=== PATIENT | female | born 1995 | race Caucasian/White ===

== ENCOUNTER 2019-12-03 11:59 | Emergency (ER) | payer BC, SELFPAY ==
--- NOTE | ~2019-12-03 | XR_ITS ---
EXAMINATION: XR elbow LT min 3V DATE: 12/03/2019 13:26 INDICATION: Left elbow pain. Injury. TECHNIQUE: 4 views of left elbow were obtained. COMPARISON: None. FINDINGS: Bone alignment is normal. No fracture. Joint spaces are well maintained. There is no elbow joint effusion. IMPRESSION: 1. No fracture. Reviewed, dictated and finalized at location A. IMPRESSION: 1. No fracture.
--- NOTE | ~2019-12-03 | XR_ITS ---
XR elbow RT min 3V DATE: 12/03/2019 13:26 INDICATION: Fall. Right elbow injury, pain TECHNIQUE: 4 views COMPARISON: None FINDINGS: No recent fracture or dislocation or joint effusion. No periosteal reaction or bone destruc tion. IMPRESSION: No recent fracture or dislocation or joint effusion Reviewed, dictated and finalized at location A.
--- NOTE | ~2019-12-03 | CT_ITS ---
EXAMINATION: CT brain wo con DATE: 12/03/2019 13:13 INDICATION: Head injury. TECHNIQUE: Computed tomography (CT) of the head was performed without intravenous contrast. The mA wa s adjusted according to patient size. Iterative reconstruction technique was employed. The dose-lengt h product was 605.33 mGy-cm. COMPARISON: None FINDINGS: There is no intracranial hemorrhage, acute infarction, or abnormal intracranial mass lesion . The ventricles are normal in size. The paranasal sinuses are clear. The mastoid air cells are norm al. The orbits are normal. IMPRESSION: 1. Normal brain. Reviewed, dictated and finalized at location A. IMPRESSION: 1. Normal brain.
--- NOTE | ~2019-12-03 | XR_ITS ---
EXAMINATION: XR forearm LT 2V DATE: 12/03/2019 13:26 INDICATION: Left forearm pain. Injury. TECHNIQUE: 2 views of left forearm were obtained. COMPARISON: None. FINDINGS: Bone alignment is normal. No fracture. Joint spaces are well maintained. There is no elbow joint effusion. IMPRESSION: 1. No fracture. Reviewed, dictated and finalized at location A. IMPRESSION: 1. No fracture.
[2019-12-03 12:16] VITALS: BP 131/79; PULSE 86; RESP 14; TEMP 37.1; O2SAT 100
[2019-12-03] MEDS: TETANUS,DIPHTHERIA,AC PERTUSSIS ADULT (0.5 ML) BOOSTRIX IM (12:41)
[2019-12-03] MEDS: IBUPROFEN 600 MG TABLET PO (12:55)
[2019-12-03 14:32] VITALS: BP 125/86; PULSE 72; RESP 15; O2SAT 10
--- NOTE | 2019-12-03 14:49 | ED.HEATRA ---
HPI - Head Injury General Chief complaint: Head Injury Stated complaint: head injury Time Seen by Provider: 12/03/19 12:22 Source: patient Mode of arrival: ambulatory Limitations: no limitations History of Present Illness HPI Narrative: This is a 23-year-old female that presents the emergency department for a fall today with head injury. Reports she was skateboarding down a hill and lost her balance and fell. Reports hitting her head. Reports she did not have a helmet on. Denies loss of consciousness. Reports a laceration to the forehead. Reports that she has been a little lightheaded and has a headache. Also reports injuries to the elbows. She is unsure of her last tetanus vaccine. Denies vision changes, vomiting, numbness or weakness. Related Data Home Medications Medication Instructions Recorded Confirmed No Home Medications 12/03/19 12/03/19 Allergies Allergy/AdvReac Type Severity Reaction Status Date / Time No Known Drug Allergies Allergy Unknown Other Verified 12/03/19 12:39 Review of Systems Review of Systems: Narrative: CONSTITUTIONAL: Denies fever EYES: Denies visual changes GASTROINTESTINAL: Denies vomiting MUSCULOSKELETAL: Reports joint pain, and myalgia. NEUROLOGIC: Reports headache. Denies numbness, or weakness. All systems reviewed & are unremarkable except as noted in HPI and below PMFSH Past Medical History Medical History (Updated 12/03/19 @ 14:55 by Lara Amador PA-C) No active medical problems Social History Social History (Updated 12/03/19 @ 14:51 by Lara Amador PA-C) Smoking status: Never smoker Gender identity (if verbalized by the patient): Female Exam Narrative: Exam Narrative: GENERAL: Well-appearing, well-nourished, and in no acute distress. HEAD: Normocephalic. 1.5cm linear laceration into subcutaneous tissue over left eyebrow EYES: PERRLA and EOMI. ENT: Nares clear, no rhinorrhea or epistaxis. Mucous membranes moist. Oropharynx without tonsillar hypertrophy exudate or other lesions. Bilateral TMs pearly roque non-bulging NECK: Supple. No adenopathy or masses. No midline spinal tenderness CHEST: Clear to auscultation. No respiratory distress. No wheezes rales or rhonchi HEART: Regular rate and rhythm. No murmur heard. Normal peripheral pulses. BACK: No midline spinal tenderness EXTREMITIES: Normal range of motion. No edema. Strength equal in bilateral upper and lower extremities SKIN: Warm, dry, no rash. NEURO: No focal deficits. Alert and oriented x3. Cranial nerves II through XII grossly intact PSYCH: Normal mood and affect Course Vital Signs Vital signs: Vital Signs Temperature 98.7 F 12/03/19 12:16 Pulse Rate 86 12/03/19 12:16 Respiratory Rate 14 12/03/19 12:16 Blood Pressure 131/79 12/03/19 12:16 Pulse Oximetry 100 12/03/19 12:16 Temperature 98.7 F 12/03/19 12:16 Pulse Rate 72 12/03/19 14:32 Respiratory Rate 15 12/03/19 14:32 Blood Pressure 125/86 12/03/19 14:32 Pulse Oximetry 10 L 12/03/19 14:32 Procedures Laceration Laceration 1: Date: 12/03/19 Time: 14:54 Site: face Side (If applicable): left Size (cm): 1.5 Description: linear Depth: simple, single layer Local Anesthetic: lidocaine 1% and with epi Amount of anesthesia used (mL): 1 Pre-repair: irrigated ====== Skin Level ====== Skin layer closed with: nylon Size (cm): 5-0 Number of sutures: 2 Technique: simple, interrupted ====== Subcutaneous Layer ====== ====== Muscle Layer ====== ====== Tendon Layer ====== Dressing: Covered with antibiotic ointment and gauze MDM - Head Injury MDM Narrative Medical decision making narrative: Patient presents the emergency department for fall off skateboard with head injury. Patient's vitals are stable. She is neurologically intact. CT scan of the brain is normal. Patient also reports bilate
[2019-12-03 15:18] VITALS: BP 123/84; PULSE 69; RESP 14; O2SAT 100
== END 2019-12-03 15:19 | disposition home or self-care (01) ==
PROVIDERS: Emergency Provider Emergency Medicine
DX: S01.112A Laceration without foreign body of left eyelid and periocular area, initial encounter (principal); M25.522 Pain in left elbow; M25.521 Pain in right elbow; Z23 Encounter for immunization; V00.131A Fall from skateboard, initial encounter; Y93.51 Activity, roller skating (inline) and skateboarding
CPT/HCPCS: 12011; 70450; 73080; 73090; 90471; 90715; 99284; A9270

== ENCOUNTER 2020-02-04 08:10 | Outpatient (CLI) | payer BC, SELFPAY ==
--- NOTE | ~2020-02-04 | US_ITS ---
US right upper quadrant DATE: 02/04/2020 08:42 INDICATION: Right upper quadrant abdominal pain, swelling TECHNIQUE: Real-time imaging of the liver, pancreas, gallbladder areas COMPARISON: None FINDINGS: No hepatic or pancreatic space-occupying mass lesion is evident. Normal hepatopedal portal venous flow direction. No gallstones or gallbladder wall thickening or abnormal pericholecystic fluid collection. Negative s onographic Amato's sign. The common bile duct measures 3.9 mm, normal. IMPRESSION: No significant abnormality Reviewed, dictated and finalized at Location A. Reviewed, dictated and finalized at location B. IMPRESSION: No significant abnormality
== END 2020-02-04 08:11 | disposition home or self-care (01) ==
PROVIDERS: PCP Family Medicine; Visit Provider Family Medicine
DX: R19.01 Right upper quadrant abdominal swelling, mass and lump (principal)
CPT/HCPCS: 76705

== ENCOUNTER 2021-01-15 10:39 | Emergency (ER) | payer BC, SELFPAY ==
[2021-01-15 11:00] VITALS: BP 141/88; PULSE 76; PULSE 80; RESP 18; TEMP 36.3; O2SAT 100
--- NOTE | 2021-01-15 11:41 | ED.GENADULT ---
HPI - General Adult General Chief complaint: Arrhythmia/Palpitations Stated complaint: chest pressure, palpatations Time Seen by Provider: 01/15/21 11:02 Source: patient and RN notes reviewed Mode of arrival: ambulatory Limitations: no limitations History of Present Illness HPI narrative: Pt had no acute sxs in the ED. Last pm she had heart palpitations, sleeplessness and was anxious. pt took Atarax this early AM. MD complaint: no acute sxs in the ED. had anxiety attack last PM. Onset (ago): day(s) (1) Pain Consistency: other (pain-free) Relieving factors: medication Exacerbating factors: none Related Data Home Medications Medication Instructions Recorded Confirmed hydroxyzine pamoate 25 mg PO PRN 01/15/21 01/15/21 venlafaxine 37.5 mg PO DAILY 01/15/21 01/15/21 venlafaxine 75 mg PO DAILY 01/15/21 01/15/21 Allergies Allergy/AdvReac Type Severity Reaction Status Date / Time No Known Drug Allergies Allergy Unknown Other Verified 12/03/19 12:39 Review of Systems Review of Systems: All systems reviewed & are unremarkable except as noted in HPI and below Constitutional: Constitutional: Reports no additional constitutional complaints Eyes: Eyes: Reports no additional eye complaints ENT: Reports system reviewed and no additional complaints, except as documented Cardiovascular: Cardiovascular: Reports no additional cardiovascular complaints Respiratory: Respiratory: Reports no additional respiratory complaints Gastrointestinal: Gastrointestinal: Reports no additional gastrointestinal complaints Genitourinary: Genitourinary: Reports no additional female genitourinary complaints Musculoskeletal: Musculoskeletal: Reports no additional musculoskeletal complaints Integumentary/Breasts: Skin/Breast: Reports system reviewed and no additional complaints, except as docu Neurologic: Reports system reviewed and no additional complaints, except as documented Psychiatric: Psychiatric: Reports anxiety and Reports depression Endocrine: Endocrine: Reports no additional endocrine complaints Hematologic/Lymphatic: Hematologic/Lymphatic: Reports no additional hematologic/lymphatic complaints Allergic/Immunologic: Allergic/Immunologic: Reports no additional allergic/immunologic complaints [facility] Past Medical History Medical History (Updated 01/15/21 @ 11:47 by Nii Frank MD) Anxiety No active medical problems Social History Social History Smoking status: Never smoker Gender identity (if verbalized by the patient): Female Exam Const: General: no acute distress and alert Nutritional Appearance: well nourished Orientation/consciousness: patient oriented x3 HENMT: Head: normal to inspection Ears: external ears normal and TM's normal bilaterally General nose exam: Normal external nose present and Normal nares present Face and sinus: normal facial exam Mouth: Yes moist mucous membranes Eyes: Conjunctivae: conjunctivae normal Pupils: Equal, round and reactive pupils present EOM: EOMs intact bilaterally Neck: Neck: normal visual inspection Other: supple. Chest: Chest palpation & inspection: normal inspection of the chest Resp: Effort & Inspection: normal respiratory effort Auscultation: clear to auscultation bilaterally Cardio: Rate: regular rate Rhythm: regular rhythm GI: GI Palp: Yes Soft to palpation Percussion: Yes normal to percussion : General: Yes bladder normal to palpation and Yes no CVA tenderness Back/Spine/Pelvis: Back: no CVA tenderness Skin: General skin exam: normal color Rashes: no rashes Neuro: General: patient oriented x3, moves all extremities and no focal motor deficits Extrem: General: normal to inspection and no pedal edema Psych: Mental Status: mental status grossly normal Affect: normal affect Thought content: Yes Normal thought content present Other: no marked anxiet or depression in the ED 01/15/2021
[2021-01-15 11:44] VITALS: BP 152/102; PULSE 52; RESP 14; O2SAT 99
== END 2021-01-15 11:45 | disposition home or self-care (01) ==
PROVIDERS: Emergency Provider Emergency Medicine; PCP Family Medicine
DX: F41.9 Anxiety disorder, unspecified (principal)
CPT/HCPCS: 99282; 99283